=== PATIENT | female | born 1965 | race Caucasian/White ===

== ENCOUNTER → 2021-11-08 14:06 | Outpatient (CLI) | payer OTHER, SELFPAY ==
--- NOTE | 2021-11-08 | DI.CT.S_ITS ---
PROCEDURE: CT SINUS SCREEN WO CON INDICATIONS: Chronic pansinusitis TECHNIQUE: Noncontrast 3.0 mm axial images acquired from the frontal sinuses to the mid-sella, with coronal and sagittal reformats. For radiation dose reduction, the following was used: automated exposure control, adjustment of mA and/or kV according to patient size. COMPARISON: None. FINDINGS: Image quality: Excellent. Maxillary Sinuses: Mucosal thickening measuring up to 8 millimeters in the inferior right maxillary sinus. Thickening of the right maxillary sinus arvizu with mild sclerosis indicative of chronic/recurrent sinusitis. Left maxillary sinus is clear. No obstruction of the maxillary sinus outflow tracts. Ethmoid Air Cells: No bony remodeling or destruction. Sinuses are clear. Sphenoid Sinuses: No bony remodeling or destruction. Sinuses are clear. Frontal Sinuses: No bony remodeling or destruction. Sinuses are clear. Ostiomeatal Complexes: Ostiomeatal complexes are patent. No Paul cells. Miscellaneous: Visualized intra-orbital contents are normal. No anthony bullosa or paradoxical turbinate curvature. No nasal septal deviation. IMPRESSION: Moderate mucosal thickening in the right maxillary sinus with bony features indicative of chronic/recurrent sinusitis. Dictated by: Ford Burton M.D. on 11/08/2021 at 14:34 Approved by: Ford Burton M.D. on 11/08/2021 at 14:36
== END ==
PROVIDERS: PCP Physician Assistant; Referring Provider Otolaryngology; Visit Provider Otolaryngology
DX: J32.4 Chronic pansinusitis (principal); R09.82 Postnasal drip; G44.89 Other headache syndrome
CPT/HCPCS: 70486

== ENCOUNTER 2024-01-14 09:39 | Day surgery (SDC) | payer OTHER, SELFPAY ==
[2024-01-14 09:56] VITALS: BP 143/84; PULSE 72; RESP 16; TEMP 36.1; O2SAT 99
[2024-01-14] MEDS: LACTATED RINGERS 1,000 ML 42 ML IV (10:04)
--- NOTE | 2024-01-14 10:19 | P.HP_ITS ---
History of Present Illness History of Present Illness Date Patient Seen: 01/14/24 Time Patient Seen: 10:19 Chief complaint: Dx Colonoscopy w/poss bx Narrative: 58-year-old female reporting for colon cancer screening. She had a negative exam approximately 10 years ago. [facility] Surgical History Status post biopsy Status post delivery Status post delivery Status post hernia repair Family History Father Spleen cancer Heart disease Hypertension Mental health problem Mother Age: 84 Breast cancer High cholesterol Grandfather Heart disease Hypertension Grandmother Lymph node cancer Mental health problem Meningitis Social History Smoking Status: Never smoker alcohol intake: current Meds Home Medications and Allergies Home Medications Medication Instructions Recorded Confirmed Type levothyroxine 100 mcg tablet 100 mcg PO DAILY 01/14/24 01/14/24 History Allergies Allergy/AdvReac Type Severity Reaction Status Date / Time epinephrine [EPINEPHRINE] Allergy Unknown Verified 01/14/24 09:52 adhesive [ADHESIVE] AdvReac Verified 01/14/24 09:52 Review of Systems Review of Systems ROS: Yes All systems reviewed with the patient and are negative except as otherwise documented Exam Vital Signs (past 8 hours): - 01/14/24 09:56 Temperature 97.0 F L Pulse Rate 72 Respiratory Rate 16 Blood Pressure 143/84 H Pulse Oximetry 99 Oxygen Delivery Method Room Air Oxygen Delivery Method Room Air Const General: cooperative HENMT Head: normal to inspection Eyes General: appearance normal, both eyes and all related structures Neck Neck: normal visual inspection Chest Chest: normal inspection of the chest Resp Effort & Inspection: normal respiratory effort Cardio Rate: regular rate GI Inspection: normal to inspection Skin General: no rashes or lesions noted Neuro General: patient alert and patient awake Extrem General: normal to inspection and no pedal edema Psych Appearance: grossly normal Assessment & Plan Assessment & Plan narrative: 58-year-old female indicated for colon cancer screening. Colonoscopy is pursued today. Time-Based Coding :: [TOTAL MINUTES] spent with patient and on the chart (including review of chart, obtaining history, exam, reviewing outside data, placing orders, documenting exam and treatment plan, and counseling patient) on [DATE].
--- NOTE | 2024-01-14 10:20 | PM.PREOP ---
Pre-operative Note Interval Note History & Physical reviewed/Exam performed by Physician: Yes Changes to H&P: No ASA Class (for procedural sedation): II
--- NOTE | 2024-01-14 11:16 | PM.OP.COLON ---
Operative Date/Time/Diagnoses Date of procedure: 01/14/24 Time of procedure: 11:16 Pre-op diagnosis: Colon cancer screening Post-op diagnosis: same Procedure & Clinicians Study performed: Colonoscopy Same procedure as scheduled: Yes Indications: Colon cancer screening Surgeon: Ronnie Snider Procedure Notes SCOAP/Timeout: Done Procedure in detail: After the risks and benefits were explained, written and verbal informed consent was obtained. The patient was brought into the procedure room and placed into the left lateral decubitus position. Please see anesthesia notes for sedation details. Digital rectal examination was accomplished. The scope was introduced into the patient and advanced under direct visualization to the cecum as identified by the appendiceal orifice and ileocecal valve. The scope was slowly withdrawn to carefully examine the mucosa for any defects or lesions. Comprehensive imaging was accomplished throughout the rectum including the dentate line. The colon was decompressed, the scope was then removed from the patient who tolerated the procedure well. Pediatric colonoscope Bowel prep adequate Scope withdrawal time: 6 minutes Sedation minutes: 9 Specimen(s): none sent Complications: none Impression: There were some scant scattered tiny diverticula in the right colon. Otherwise the mucosal exam throughout was entirely normal. The patient had grade 3 to grade 4 nonbleeding nonthrombosed hemorrhoids. Endoscopic diagnosis 1. Grade 3-4 hemorrhoids 2. Scant right colon diverticulosis 3. Otherwise visually normal exam Post-procedure Plan for aftercare: Repeat colonoscopy 10 years for screening purposes; sooner should symptoms warrant an earlier exam. Disposition: PACU
[2024-01-14 11:20] VITALS: BP 115/63; PULSE 64; RESP 18; TEMP 36.4; O2SAT 98
[2024-01-14 11:24] VITALS: BP 122/74; PULSE 69; RESP 17; O2SAT 99
[2024-01-14 11:27] VITALS: BP 120/80; PULSE 66; RESP 16; O2SAT 98
== END 2024-01-14 11:33 | disposition home or self-care (01) ==
PROVIDERS: PCP Nurse Practitioner Family; Referring Provider Internal Medicine Gastroenterology; Visit Provider Internal Medicine Gastroenterology
PROC: 0DJD8ZZ Inspection of Lower Intestinal Tract, Via Natural or Artificial Opening Endoscopic (ICD-10-PCS; CPT 45378; principal; 2024-01-14 10:30)
DX: Z12.11 Encounter for screening for malignant neoplasm of colon (principal); Z86.010 Personal history of colon polyps; K64.2 Third degree hemorrhoids; K57.30 Diverticulosis of large intestine without perforation or abscess without bleeding
CPT/HCPCS: 45378; J2704